=== PATIENT | female | born 1995 | race Caucasian/White ===

== ENCOUNTER 2020-10-12 17:09 | Emergency (ER) | payer OTHER ==
--- NOTE | 2020-10-12 20:01 | XR ---
EXAMINATION TYPE: XR chest 2V DATE OF EXAM: 10/12/2020 COMPARISON: NONE HISTORY: Short of breath. Chest heaviness TECHNIQUE: 2 views FINDINGS: Heart and mediastinum are normal. There is no pleural effusion. Costophrenic angles are mauri ar. There are no hilar masses. Lungs are clear of consolidation. IMPRESSION: No active cardiopulmonary disease. Normal heart.
--- NOTE | 2020-10-12 20:27 | ED ---
General Adult HPI - General Source: patient Mode of arrival: ambulatory Limitations: no limitations <Al Manzanares - Last Filed: 10/13/20 00:24> <Eva Hsu - Last Filed: 10/13/20 13:40> - General Chief complaint: ENT Stated complaint: Sore Throat/BRITTON Time Seen by Provider: 10/12/20 19:31 - History of Present Illness Initial comments: 25-year-old female presents emergency Department with chief complaint of cough sore throat and runny nose. Patient reports this feels like her previous case of Covid which was over 6 months ago. Patient reports a productive cough with yellow sputum production over the last 7 days that has not seemed to be resolving. She also reports a sore throat which he suspects is secondary to the repetitive coughing episodes. She denies any associated shortness of breath or chest pain. Patient reports vaping. Denies any fevers or chills, loss of taste or smell. (Al Manzanares) - Related Data Previous Rx's Medication Instructions Recorded Azithromycin [Zithromax Z-pack (6 0 mg PO DIRECTED #1 pack 10/12/20 tabs)] Allergies Allergy/AdvReac Type Severity Reaction Status Date / Time No Known Allergies Allergy Verified 10/12/20 18:08 Review of Systems ROS Other: All systems not noted in ROS Statement are negative. <Al Manaznares - Last Filed: 10/13/20 00:24> ROS Other: All systems not noted in ROS Statement are negative. <Eva Hsu - Last Filed: 10/13/20 13:40> ROS Statement: Those systems with pertinent positive or pertinent negative responses have been documented in the HPI. Past Medical History Past Medical History: Asthma History of Any Multi-Drug Resistant Organisms: None Reported Past Surgical History: No Surgical Hx Reported Past Psychological History: No Psychological Hx Reported Smoking Status: Vaper Past Alcohol Use History: Occasional Past Drug Use History: None Reported <Al Manzanares - Last Filed: 10/13/20 00:24> General Exam Limitations: no limitations General appearance: alert, in no apparent distress Head exam: Present: atraumatic, normocephalic, normal inspection Eye exam: Present: normal appearance Pupils: Present: normal accommodation ENT exam: Present: normal exam, normal oropharynx, mucous membranes moist Neck exam: Present: normal inspection, full ROM. Absent: tenderness Respiratory exam: Present: normal lung sounds bilaterally. Absent: respiratory distress Cardiovascular Exam: Present: regular rate, normal rhythm, normal heart sounds. Absent: systolic murmur Extremities exam: Present: normal inspection, full ROM, normal capillary refill. Absent: tenderness Back exam: Present: normal inspection, full ROM. Absent: tenderness Neurological exam: Present: alert, oriented X3 Psychiatric exam: Present: normal affect, normal mood Skin exam: Present: warm, dry, intact, normal color <Al Manzanares - Last Filed: 10/13/20 00:24> Course Vital Signs 10/12/20 10/12/20 18:03 20:38 Temperature 98.8 F 97.8 F Pulse Rate 78 77 Respiratory 18 20 Rate Blood Pressure 147/100 119/77 O2 Sat by Pulse 98 98 Oximetry Medical Decision Making <Al Manzanares - Last Filed: 10/13/20 00:24> <Eva Hsu - Last Filed: 10/13/20 13:40> - Medical Decision Making 25-year-old female presents to the emergency department with a chief complaint of cough sore throat and rhinorrhea. Physical examination, patient is well- appearing. Lungs are clear to auscultation. She is negative for Covid. X-rays unremarkable. Advised to stop smoking. She will be started on azithromycin considering the symptoms of benign one for about one week. Return parameters were thoroughly discussed with patient is understanding and agreeable. (Al Manzanares) I was available for consultation in the emergency department. The history and physical exam were done by the midlevel provider. I was consulted for this patients care. I reviewed the case with the midlevel provider and based on their presentation of the patient, I agree with the assessment, medical decision making and plan of care as documented. Chart was dictated using [employer] dictation software. Attempts were made to correct any dictation errors however some typographical errors may persist. Patient was seen during a national state of emergency due to the Covid-19 pandemic. (Eva Hsu) - Lab Data Lab Results 10/12/20 Range/Units 19:35 Coronavirus (PCR) Not Detected (Not Detectd) Disposition Is patient prescribed a controlled substance at d/c from ED?: No Time of Disposition: 20:27 <Al Manzanares - Last Filed: 10/13/20 00:24> <Eva Hsu - Last Filed: 10/13/20 13:40> Clinical Impression: Viral respiratory infection Disposition: HOME SELF-CARE Condition: Stable Instructions (If sedation given, give patient instructions): Viral Syndrome (ED) Additional Instructions: Follow-up with her primary care physician. Return to emergency department if symptoms worsen. Prescriptions: Azithromycin [Zithromax Z-pack (6 tabs)] 0 mg PO DIRECTED #1 pack Referrals: None,Stated [Primary Care Provider] - 1-2 days
[2020-10-12 20:39] VITALS: BP 119/77; PULSE 77; RESP 20; TEMP 97.8
== END 2020-10-12 20:38 | disposition home or self-care (01) ==
LOC: EC 17:09
DX: J06.9 Acute upper respiratory infection, unspecified (principal); J45.909 Unspecified asthma, uncomplicated; F17.290 Nicotine dependence, other tobacco product, uncomplicated; Z20.822 Contact with and (suspected) exposure to COVID-19
CPT/HCPCS: 71046; 87635; 99283

== ENCOUNTER 2024-02-08 06:30 | Emergency (ER) | payer OTHER ==
--- NOTE | 2024-02-08 06:56 | ED ---
ENT HPI - General Chief complaint: ENT Stated complaint: R Ear Infection Time Seen by Provider: 02/08/24 06:55 Source: patient, RN notes reviewed Mode of arrival: ambulatory - History of Present Illness Initial comments: Patient is a 28-year-old female presented to the ER for evaluation of right ear discomfort. Patient states for the past 2 weeks she has had pain/pressure to h er right ear. Patient was seen at [facility] urgent care approximately 1 week ago and diagnosed with otitis media. Patient was started on cefdinir and prednisone. She presents today for worsening of pain stating she was unable to sleep and lay on her right side due to this pressure. She also reports "popping" sensation to her left ear and is concerned infection is worsening. She has been taking [id number] ibuprofen and Tylenol for pain control with minor relief. She denies any fevers, cough, congestion, chest pain, shortness of breath, abdominal pain or other complaints. - Related Data Previous Rx's Medication Instructions Recorded Azithromycin [Zithromax Z-pack (6 0 mg PO DIRECTED #1 pack 10/12/20 tabs)] Amoxic-Pot Clav 875-125Mg 1 tab PO Q12HR 7 Days #14 tab 02/08/24 [Augmentin 875-125] Oxymetazoline 0.05% Nasl [place] 2 spray EA NOSTRIL BID 3 Days #15 02/08/24 [Afrin 0.05% Nasal [place]] ml Allergies Allergy/AdvReac Type Severity Reaction Status Date / Time No Known Allergies Allergy Verified 10/12/20 18:08 Review of Systems ROS Statement: Those systems with pertinent positive or pertinent negative responses have been documented in the HPI. ROS Other: All systems not noted in ROS Statement are negative. Past Medical History Past Medical History: Asthma History of Any Multi-Drug Resistant Organisms: None Reported Past Surgical History: No Surgical Hx Reported Past Psychological History: No Psychological Hx Reported Smoking Status: Vaper Past Alcohol Use History: Occasional Past Drug Use History: None Reported General Exam General appearance: alert, in no apparent distress Eye exam: Present: normal appearance, PERRL, EOMI. Absent: scleral icterus, conjunctival injection, periorbital swelling ENT exam: Present: normal oropharynx, mucous membranes moist, other (Right tympanic membrane is erythematous with purulent drainage present behind membrane. Membrane is not bulging. No mastoid tenderness bilaterally. Left tympanic membrane unremarkable.) Neck exam: Present: normal inspection. Absent: tenderness, meningismus, lymphadenopathy Respiratory exam: Present: normal lung sounds bilaterally. Absent: respiratory distress, wheezes, rales, rhonchi, stridor Cardiovascular Exam: Present: regular rate, normal rhythm, normal heart sounds. Absent: systolic murmur, diastolic murmur, rubs, gallop, clicks Neurological exam: Present: alert, oriented X3, CN II-XII intact Skin exam: Present: warm, dry, intact, normal color. Absent: rash Course Vital Signs 02/08/24 06:35 Temperature 97.5 F L Pulse Rate 103 H Respiratory 18 Rate Blood Pressure 165/84 O2 Sat by Pulse 98 Oximetry Medical Decision Making - Medical Decision Making Was pt. sent in by a medical professional or institution (Dr. PA, [employer] CONSULTANT, urgent care, hospital, or group home...) When possible be specific @ -No Did you speak to anyone other than the patient for history (EMS, parent, family, police, friend...)? What history was obtained from this source @ -No Did you review nursing and triage notes (agree or disagree)? Why? @ -I reviewed and agree with nursing and triage notes Were old charts reviewed (outside hosp., previous admission, EMS record, old EKG, old radiological studies, urgent care reports/EKG's, group home records)? Report findings @ -No old charts were reviewed Differential Diagnosis (chest pain, altered mental status, abdominal pain women, abdominal pain men, vaginal bleeding, weakness, fever, dyspnea, syncope, headache, dizziness, GI bleed, back pain, seizure, CVA, palpatations, mental health, musculoskeletal)? @ -Otitis media, mastoiditis, otitis externa, viral illness... This list is not meant to be all-inclusive EKG interpreted by me (3pts min.). @ -None done X-rays interpreted by me (1pt min.). @ -None done CT interpreted by me (1pt min.). @ -None done U/S interpreted by me (1pt. min.). @ -None done What testing was considered but not performed or refused? (CT, X-rays, U/S, labs)? Why? @ -None What meds were considered but not given or refused? Why? @ -None Did you discuss the management of the patient with other professionals (professionals i.e. DrEileen, PA, [employer] CONSULTANT, lab, RT, psych nurse, social science professor, food trades assistants, teacher, port patrol officer, behavioral health case manager)? Give summary @ -No Was smoking cessation discussed for >3mins.? @ -No Was critical care preformed (if so, how long)? @ -No Were there social determinants of health that impacted care today? How? (Homelessness, low income, unemployed, alcoholism, drug addiction, transportation, low edu. Level, literacy, decrease access to med. care, [place] [facility], rehab)? @ -No Was there de-escalation of care discussed even if they declined (Discuss DNR or withdrawal of care, Hospice)? DNR status @ -No What co-morbidities impacted this encounter? (DM, HTN, Smoking, COPD, CAD, Cancer, CVA, ARF, Chemo, Hep., AIDS, mental health diagnosis, sleep apnea, morbid obesity)? @ -None Was patient admitted / discharged? Hospital course, mention meds given and route, prescriptions, significant lab abnormalities, going to OR and other pertinent info. @ -Discharge. 28-year-old female presented the ER for evaluation of right ear discomfort. History and physical exam completed. Vitals stable. Exam remarkable for an erythematous right tympanic membrane. Membrane is not bulging with purulent drainage present behind membrane. No mastoid tenderness bilaterally. Left unremarkable. Patient will be switched to Augmentin and prescribed Afrin for symptom control. I discussed with patient to stop Afrin use after 3 days. Patient is stable for discharge and outpatient follow-up. Strict return parameters discussed. Patient discharged in stable condition with follow-up to PCP. Patient verbally expressed understanding and agreement with care plan. Case discussed with ED attending, Dr. Puentes. Undiagnosed new problem with uncertain prognosis? @ -No Drug Therapy requiring intensive monitoring for toxicity (Heparin, Nitro, Insulin, Cardizem)? @ -No Were any procedures done? @ -No Diagnosis/symptom? @ -Otitis media Acute, or Chronic, or Acute on Chronic? @ -Acute Uncomplicated (without systemic symptoms) or Complicated (systemic symptoms)? @ -Uncomplicated Side effects of treatment? @ -No Exacerbation, Progression, or Severe Exacerbation? @ -No Poses a threat to life or bodily function? How? (Chest pain, [place], [place], pneumonia, PE, COPD, DKA, ARF, appy, cholecystitis, CVA, Diverticulitis, Homicidal, Suicidal, threat to staff... and all critical care pts) @ -No Disposition Clinical Impression: Otitis media Disposition: HOME SELF-CARE Condition: Stable Instructions (If sedation given, give patient instructions): Ear Infection (ED) Additional Instructions: Do not use Afrin nasal spray for longer than 3 days. Follow-up with PCP. Return to the ER for any new or worsening symptoms. Prescriptions: Oxymetazoline 0.05% Nasl [place] [Afrin 0.05% Nasal [place]] 2 spray EA NOSTRIL BID 3 Days #15 ml Amoxic-Pot Clav 875-125Mg [Augmentin 875-125] 1 tab PO Q12HR 7 Days #14 tab Is patient prescribed a controlled substance at d/c from ED?: No Referrals: Manolo Plata MD [Primary Care Provider] - 1-2 days Time of Disposition: 06:56
[2024-02-08 07:30] VITALS: BP 154/72; PULSE 88; RESP 16; TEMP 98
== END 2024-02-08 07:21 | disposition home or self-care (01) ==
LOC: EC 06:30
DX: H66.91 Otitis media, unspecified, right ear (principal); F17.290 Nicotine dependence, other tobacco product, uncomplicated
CPT/HCPCS: 99283

== ENCOUNTER 2024-04-26 23:23 | Observation (INO) | payer OTHER ==
[2024-04-26 23:34] VITALS: RESP 18
--- NOTE | 2024-04-27 00:16 | ED ---
Extremity Problem HPI - General Chief complaint: Burn/Smoke Inhalation Stated complaint: burn on leg infected Time Seen by Provider: 04/26/24 23:37 Source: patient, RN notes reviewed Mode of arrival: ambulatory Limitations: no limitations - History of Present Illness Initial comments: This is a 28-year-old female who presents to the emergency department for concerns of a burn to her left thigh. States that she burned her left thigh on a curling iron 1 week ago. States that she then started to develop redness around the burn and her whole leg started to become swollen. States that this is also severely painful. She went to urgent care a couple of days ago and was started on Keflex. She has been on this for over 2 days now but is not having any improvement. States that she is barely able to walk due to the pain. She has also noticed drainage from the burn. Also reports weakness and nausea. States that she also started to have fevers yesterday. - Related Data Home Medications Medication Instructions Recorded Confirmed Escitalopram [Lexapro] 10 mg PO DAILY 03/24/24 03/24/24 metFORMIN HCL 500 mg PO DAILY 03/24/24 03/24/24 Previous Rx's Medication Instructions Recorded Atorvastatin [Lipitor] 40 mg PO DAILY 30 Days #30 tab 03/26/24 Fenofibrate [Lofibra] 160 mg PO DAILY 30 Days #30 tab 03/26/24 Ondansetron Odt [Zofran Odt] 4 mg PO Q8HR PRN 30 Days #30 tab 03/26/24 amLODIPine [Norvasc] 5 mg PO DAILY@1200 30 Days #30 tab 03/26/24 Allergies Allergy/AdvReac Type Severity Reaction Status Date / Time No Known Allergies Allergy Verified 04/26/24 23:33 Review of Systems ROS Statement: Those systems with pertinent positive or pertinent negative responses have been documented in the HPI. ROS Other: All systems not noted in ROS Statement are negative. Past Medical History Past Medical History: Asthma, Hypertension History of Any Multi-Drug Resistant Organisms: None Reported Past Surgical History: No Surgical Hx Reported Past Psychological History: No Psychological Hx Reported Smoking Status: Vaper Past Alcohol Use History: Occasional Past Drug Use History: None Reported General Exam Limitations: no limitations General appearance: alert, in no apparent distress Head exam: Present: atraumatic, normocephalic, normal inspection Respiratory exam: Present: normal lung sounds bilaterally. Absent: respiratory distress, wheezes, rales, rhonchi, stridor Cardiovascular Exam: Present: regular rate, normal rhythm Extremities exam: Present: other (Burn to the anterior aspect of the left thigh encompassing 1 to 2% total BSA. Surrounding erythema and swelling of the left lower extremity. 2+ DP and PT pulses) Neurological exam: Present: alert, oriented X3, CN II-XII intact Psychiatric exam: Present: normal affect, normal mood Course Vital Signs 04/26/24 23:31 Temperature 98.2 F Pulse Rate 80 Respiratory 18 Rate Blood Pressure 143/91 O2 Sat by Pulse 96 Oximetry Medical Decision Making - Medical Decision Making This is a 28 year old female who presents to the emergency department for left leg pain. Was pt. sent in by a medical professional or institution? @ -No Did you speak to anyone other than the patient for history? @ -No Did you review nursing and triage notes? @ -Yes, and I agree, it is accurate with regards to the patient's symptoms. Were old charts reviewed? @ -No Differential Diagnosis? @ -Leg fracture, leg sprain, DVT, PVD, arterial insufficiency, iliac artery aneurysm, cellulitis, compartment syndrome, tendinopathy, nerve entrapment, piriformis syndrome, osteoarthritis, rhabdomyolysis, myositis, cramping from an electrolyte imbalance, this is not meant to be an all inclusive list. EKG interpreted by me (3pts min.)? @ -Not obtained X-rays interpreted by me (1pt min.)? @ -Not obtained CT interpreted by me (1pt min.)? @ -Not obtained U/S interpreted by me (1pt. min.)? @ -Not obtained What testing was considered but not performed? (CT, X-rays, U/S, labs)? Why? @ -None What meds were considered but not given? Why? @ -None Did you discuss the management of the patient with other professionals? @ -No Did you reconcile home meds? @ -No Was smoking cessation discussed for >3mins.? @ -No Was critical care preformed (if so, how long)? @ -No Were there social determinants of health that impacted care today? How? (Homelessness, low income, unemployed, alcoholism, drug addiction, tr ansportation, low edu. Level, literacy, decrease access to med. care, nursing home, rehab)? @ -No Was there de-escalation of care discussed even if they declined? (Discuss DNR or withdrawal of care, Hospice)? @ -No What co-morbidities impacted this encounter? (DM, HTN, Smoking, COPD, CAD, Cancer, CVA, Hep., AIDS, mental health diagnosis, sleep apnea, morbid obesity)? @ -None Was patient admitted / discharged? @ -Discharged. Lab work entirely unremarkable including no leukocytosis or elevated inflammatory markers. She had a wound to the anterior aspect of her left thigh consistent with patient's noted burn. She did have some generalized swelling and erythema around it as well. She is on Keflex, but had only been on it for a couple of days at this point. We had discussed adding an additional antibiotic for more coverage and discharge with pain control. However, patient states that her pain is too severe and she is unable to ambulate and does not believe she can go home. Her pain was also uncontrolled despite IV Dilaudid. She was subsequently admitted to medicine for intractable pain and a burn with surrounding cellulitis. Blood and wound cultures obtained. She was started on vancomycin and cefepime. Consult placed for infectious disease and wound care. Case discussed with ED attending Dr. Hunter. Undiagnosed new problem with uncertain prognosis? @ -None Drug Therapy requiring intensive monitoring for toxicity (Heparin, Nitro, Insulin, Cardizem)? @ -None Were any procedures done? @ -None Diagnosis/symptom? @ -Left leg burn, cellulitis, intractable pain Acute, or Chronic, or Acute on Chronic? @ -Acute Uncomplicated (without systemic symptoms) or Complicated (systemic symptoms)? @ -Complicated Side effects of treatment? @ -None Exacerbation, Progression, or Severe Exacerbation] @ -Not applicable Poses a threat to life or bodily function? @ -Yes, the pain is limiting her ability to function. - Lab Data Result diagrams: 04/27/24 00:13 04/27/24 00:13 Lab Results 04/27/24 04/27/24 04/27/24 Range/Units 00:13 00:13 00:13 WBC 10.0 (3.8-10.6) k/uL RBC 4.42 (3.80-5.40) m/uL Hgb 13.3 (11.4-16.0) gm/dL Hct 41.2 (34.0-46.0) % MCV 93.3 (80.0-100.0) fL MCH 30.1 (25.0-35.0) pg MCHC 32.2 (31.0-37.0) g/dL RDW 14.1 (11.5-15.5) % Plt Count 305 (150-450) k/uL MPV 7.7 Neutrophils % 55 % Lymphocytes % 37 % Monocytes % 4 % Eosinophils % 1 % Basophils % 0 % Neutrophils # 5.5 (1.3-7.7) k/uL Lymphocytes # 3.6 (1.0-4.8) k/uL Monocytes # 0.4 (0-1.0) k/uL Eosinophils # 0.1 (0-0.7) k/uL Basophils # 0.0 (0-0.2) k/uL Sodium 141 (137-145) mmol/L Potassium 3.7 (3.5-5.1) mmol/L Chloride 104 (98-107) mmol/L Carbon Dioxide 24 (22-30) mmol/L Anion Gap 13 mmol/L BUN 7 (7-17) mg/dL Creatinine 0.65 (0.52-1.04) mg/dL Est GFR (CKD-EPI)AfAm >90 (>60 ml/min/1.73 sqM) Est GFR (CKD-EPI)NonAf >90 (>60 ml/min/1.73 sqM) Glucose 104 H (74-99) mg/dL Plasma Lactic Acid [place] 1.6 (0.7-2.0) mmol/L Calcium 8.9 (8.4-10.2) mg/dL Total Bilirubin 0.3 (0.2-1.3) mg/dL AST 44 H (14-36) U/L ALT 29 (4-34) U/L Alkaline Phosphatase 76 (38-126) U/L C-Reactive Protein <0.5 (<1.0) mg/dL Total Protein 7.6 (6.3-8.2) g/dL Albumin 4.4 (3.5-5.0) g/dL Disposition Clinical Impression: Burn of left leg, Cellulitis of left leg, Intractable pain Disposition: ADMITTED IP TO THIS HOSP
[2024-04-27] MEDS: SODIUM CHLORIDE 0.9% 1,000 ML IV ONE (00:20)
[2024-04-27] MEDS: KETOROLAC 15 MG/ML 1 ML VIAL IVP STA (00:21)
[2024-04-27] MEDS: ONDANSETRON 4 MG/2 ML VIAL IVP STA (00:21)
[2024-04-27] MEDS: HYDROmorphone 1 MG/ML 1 ML SYRINGE IVP STA ×2 (00:22→02:02)
[2024-04-27 00:36] LABS: Basophils % (A) 0 %; Eosinophils # (A) 0.1 k/uL (0-0.7); Eosinophils % (A) 1 %; HCT 41.2 % (34.0-46.0); HGB 13.3 gm/dL (11.4-16.0); Lymphocytes # (A) 3.6 k/uL (1.0-4.8); Lymphocytes % (A) 37 %; MCH 30.1 pg (25.0-35.0); MCHC 32.2 g/dL (31.0-37.0); MCV 93.3 fL (80.0-100.0); Mean Platelet Volume 7.7; Monocytes # (A) 0.4 k/uL (0-1.0); Monocytes % (A) 4 %; Neutrophils # (A) 5.5 k/uL (1.3-7.7); Neutrophils % (A) 55 %; Platelet Count 305 k/uL (150-450); RBC 4.42 m/uL (3.80-5.40); RDW 14.1 % (11.5-15.5)
[2024-04-27 00:53] LABS: ALT 29 U/L (4-34); AST 44 U/L (14-36); African American GFR (CKD) >90 (>60 ml/min/1.73 sqM); Albumin 4.4 g/dL (3.5-5.0); Alkaline Phosphatase 76 U/L (38-126); Anion Gap 13 mmol/L; Blood Urea Nitrogen 7 mg/dL (7-17); Calcium 8.9 mg/dL (8.4-10.2); Carbon Dioxide 24 mmol/L (22-30); Chloride 104 mmol/L (98-107); Glucose 104 mg/dL (74-99); Non-African American GFR(CKD) >90 (>60 ml/min/1.73 sqM); Potassium 3.7 mmol/L (3.5-5.1); Sodium 141 mmol/L (137-145); Total Bilirubin 0.3 mg/dL (0.2-1.3); Total Protein 7.6 g/dL (6.3-8.2)
[2024-04-27 01:01] LABS: C Reactive Protein <0.5 mg/dL (<1.0)
[2024-04-27] MEDS ORDERED: VANCOMYCIN IV PER PHARMACY 1 EACH MISC MISCELLANE PRN (01:43)
[2024-04-27] MEDS: CEFEPIME 1 GM in SODIUM CHLORIDE 0.9% 50 ML IVPB SCH (02:11)
[2024-04-27] MEDS ORDERED: NALOXONE 0.4 MG/ML 1 ML VIAL IV PRN (02:17)
[2024-04-27] MEDS ORDERED: ACETAMINOPHEN TAB 325 MG TAB PO PRN (02:17)
[2024-04-27] MEDS: SODIUM CHLORIDE 0.9% 1,000 ML IV SCH (02:30)
[2024-04-27] MEDS: ONDANSETRON 4 MG/2 ML VIAL IVP PRN (02:30)
[2024-04-27] MEDS: HYDROmorphone 1 MG/ML 1 ML SYRINGE IVP PRN (03:27)
[2024-04-27] MEDS: HYDROmorphone 0.5 MG/0.5 ML SYRINGE IVP PRN (03:29)
[2024-04-27] MEDS: VANCOMYCIN 1,500 MG in SODIUM CHLORIDE 0.9% 500 ML 500 ML IVPB ONE (03:33)
[2024-04-27] MEDS: IBUPROFEN 400 MG TAB PO PRN (05:46)
[2024-04-27] MEDS: PANTOPRAZOLE 40 MG/10 ML VIAL IV SCH (09:15)
[2024-04-27] MEDS: KETOROLAC 15 MG/ML 1 ML VIAL IVP PRN (09:28)
[2024-04-27] MEDS: VANCOMYCIN 1,500 MG in SODIUM CHLORIDE 0.9% 500 ML 500 ML IVPB SCH (11:03)
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
[2024-04-27 12:49] LABS: Erythrocyte Sedimentation Rate 14 mm/Hr (0-20)
[2024-04-27] MEDS: methylPREDNISolone SOD SUCCI 40 MG/ML 1 ML VIAL IV ONE (14:22)
[2024-04-27 14:31] VITALS: BP 129/94; PULSE 74; TEMP 97.7
[2024-04-28] MEDS ORDERED: VANCOMYCIN TROUGH DUE 1 EACH MISC MISCELLANE ONE (09:00)
== END 2024-04-27 14:33 | disposition home or self-care (01) ==
LOC: EC 23:23 → 6NMEDSUR 04-27 02:59
PROVIDERS: ADMIT Hospitalist; ATTEND Hospitalist
DX: T24.312A Burn of third degree of left thigh, initial encounter (principal); T31.0 Burns involving less than 10% of body surface; X15.8XXA Contact with other hot household appliances, initial encounter; I10 Essential (primary) hypertension; J45.909 Unspecified asthma, uncomplicated; E78.5 Hyperlipidemia, unspecified; F32.A Depression, unspecified; F17.290 Nicotine dependence, other tobacco product, uncomplicated; Z79.51 Long term (current) use of inhaled steroids; Z79.84 Long term (current) use of oral hypoglycemic drugs; Z79.899 Other long term (current) drug therapy
CPT/HCPCS: 99285; 36415; 80053; 85652; 83605; 85025; 86140; 87040; 87070; 87205; 87075; G0378; J3370; J2405; J0692; J1171 ×2; J1885; J2919; J2470

== ENCOUNTER 2024-04-30 15:51 | Emergency (ER) | payer OTHER ==
[2024-04-30 15:57] VITALS: RESP 20
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
[2024-04-30] MEDS: HYDROcodone/APAP 5-325MG 1 EACH TAB PO STA (16:38)
[2024-04-30] MEDS: traMADol 50 MG STARTER PACK 3 TAB BTL PO STA (16:39)
[2024-04-30 16:51] VITALS: BP 134/89; PULSE 84; TEMP 97.9
== END 2024-04-30 16:56 | disposition home or self-care (01) ==
LOC: EC 15:51
DX: T24.012A Burn of unspecified degree of left thigh, initial encounter (principal); G89.29 Other chronic pain; F17.290 Nicotine dependence, other tobacco product, uncomplicated; X58.XXXA Exposure to other specified factors, initial encounter
CPT/HCPCS: 99283

== ENCOUNTER → 2024-05-30 | Outpatient (CLI) | payer OTHER ==
[2024-05-30 13:57] VITALS: BP 142/88; PULSE 88; RESP 16; TEMP 98.6
--- NOTE | 2024-05-30 14:36 | P.SLEEP ---
History of Present Illness DATE: 05/30/2024 CONSULTATION/NEW PATIENT EVALUATION HISTORY OF PRESENT ILLNESS/SLEEP-WAKE EVALUATION: 36-year-old lady had been e valuated in the sleep center for possible obstructive sleep apnea hypopnea syndrome and significant excessive daytime sleepiness. 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 From 8 AM to 10 PM or from midnight until 8 AM and on days off from 4 AM until 10 AM.. FALLING ASLEEP: Patient has difficulties with falling asleep, has TV set in be droom. DURING SLEEP: Patient sleeps in different positions including back, side, stomach. Positive history of loud snoring, witnessed episodes of stop breathing during the sleep, dry mouth, panic attacks, palpitations, heartburn, sweating, sleep talking, nocturia. No history of hypnogogical hallucinations, sleep paralysis, or cataplexy. DURING THE DAY/WAKE STATE: In the morning patient wake up tired, has problems with memory, concentration, sleepiness.. Viola sleepiness scale is increased to 12. Patient takes about 1 nap during the daytime. PAST MEDICAL HISTORY: Hypertension, depression, hyperlipidemia, iron deficiency anemia, acid reflux, asthma. PAST SURGICAL HISTORY: None. MEDICATIONS: Please see below. SOCIAL HISTORY: Please see below. FAMILY HISTORY: Please see below. REVIEW OF SYSTEMS: Loud snoring, multiple awakenings from sleep up to 15 times, sleepiness. No fevers. No double vision. No recent chest pain. No shortness of breath. No abdominal pain. No bleeding episodes. No blood in urine. No seizure episodes. PHYSICAL EXAMINATION: GENERAL: A pleasant patient without any distress. VITAL SIGNS: Please see below weight is 231 pounds, BMI 37.8. HEENT: PERRLA, EOMI. Evaluation of oropharynx showed tongue protrudes midline, low position of soft palate Mallampati 3. NECK: Supple. No JVD. Thyroid is not palpable. 16 inches in circumference. LUNGS: Clear to percussion and to auscultation. Good air exchange. No wheezing or rhonchi. HEART: S1, S2 regular. No murmurs, gallops or rubs. ABDOMEN: Soft and nontender. Bowel sounds are present. No organomegaly appreciated. EXTREMITIES: No clubbing or cyanosis. ATHLETIC TEAM PHYSICIAN: Awake, alert, and oriented x3. Cranial nerves 2 to 7 intact. There is no fasciculation or atrophy noted. No focal deficits observed. ASSESSMENT: 1. Loud snoring, witnessed episodes of stop breathing in the sleep, low position of soft palate Mallampati 3, wide neck 16 inches in circumference, sleepiness. Obstructive sleep apnea hypopnea syndrome. 2. Sleepiness with Viola Sleepiness Scale increased to 12. Differential diagnosis would include hypersomnia. 3. 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 4. Hypertension. 5 asthma. 6 . Depression. 7. Hyperlipidemia. 8. History of iron deficiency anemia. 9 . Acid reflux. 10. Obesity, BMI 37.8. PLAN: 1. Polysomnography for evaluation of patient's breathing during sleep. Multiple sleep latency test, if sleep study will be negative for obstructive sleep apnea hypopnea syndrome. 2. Following plan after reading sleep study 3. Preferable position during sleep on the side. 4. No driving if patient feels any sleepiness. Patient is aware of civil and criminal liability for unsafe driving. 5. Sleep hygiene with regular sleep time for at least 7.5-8 hours. 6. Watching and losing weight. Thank you very much for referring this patient for consultation. Sincerely, ePpe Raygoza MD, PhD, FAASM. Diplomat of [place] [employer], Sleep Medicine Board by [place] [employer] [place] [employer] Information Developer of [facility] Harper cc: Abena Gonzalez MD Past Medical History Past Medical History: Asthma, GERD/Reflux, Hyperlipidemia, Hypertension, Pneumonia Additional Past Medical History / Comment(s): bronchitis, snoring, lung problems, headaches, insomnia, anemia, mental illness History of Any Multi-Drug Resistant Organisms: None Reported Past Surgical History: No Surgical Hx Reported Past Anesthesia/Blood Transfusion Reactions: No Reported Reaction Past Psychological History: No Psychological Hx Reported Smoking Status: Vaper Past Alcohol Use History: Occasional Past Drug Use History: None Reported - Past Family History Mother Family Medical History: Coronary Artery Disease (CAD), Hyperlipidemia, Hypertension, Liver Disease, Rheumatoid Arthritis (RA) Additional Family Medical History / Comment(s): fibromyalgia, snoring, mental illness Father Family Medical History: Cancer, Diabetes Mellitus, GERD/Reflux Medications and Allergies Home Medications Medication Instructions Recorded Confirmed Type Escitalopram [Lexapro] 10 mg PO DAILY 03/24/24 05/30/24 History metFORMIN HCL 500 mg PO DAILY 03/24/24 04/27/24 History Atorvastatin [Lipitor] 40 mg PO DAILY 30 Days #30 tab 03/26/24 04/27/24 Rx Fenofibrate [Lofibra] 160 mg PO DAILY 30 Days #30 tab 03/26/24 04/27/24 Rx Ondansetron Odt [Zofran Odt] 4 mg PO Q8HR PRN 30 Days #30 tab 03/26/24 05/30/24 Rx amLODIPine [Norvasc] 5 mg PO DAILY@1200 30 Days #30 tab 03/26/24 05/30/24 Rx Acetaminophen Tab [Tylenol Tab] 500 mg PO Q6HR PRN 04/27/24 04/27/24 History Cetirizine HCl [Zyrtec] 10 mg PO DAILY 04/27/24 05/30/24 History Famotidine [Pepcid] 20 mg PO BID #20 tablet 04/27/24 Rx Fluticasone Nasal [place] [Flonase 1 spray EA NOSTRIL DAILY PRN 04/27/24 05/30/24 History Nasal [place]] HYDROcodone/APAP 5-325MG [[place] 1 tab PO Q6HR PRN #15 tab 04/27/24 Rx 5-325] Naproxen [Naprosyn] 250 mg PO QID PRN #30 tab 04/27/24 05/30/24 Rx Silver Sulfadiazine [SSD 1% Cream] 1 applic TOPICAL BID 04/27/24 05/30/24 History Sulfamethox-Tmp 800-160Mg [Bactrim 1 tab PO Q12HR #14 tab 04/27/24 Rx DS 800-160 mg] HYDROcodone/APAP 5-325MG [[place] 1 tab PO Q6HR PRN #12 tab 04/30/24 Rx 5-325] Allergies Allergy/AdvReac Type Severity Reaction Status Date / Time No Known Allergies Allergy Verified 04/30/24 15:53 Physical Exam Vitals: Vital Signs Temp Pulse Resp BP Pulse Ox 05/30/24 13:56 98.6 F 88 16 142/88 96 Intake and Output 05/29/24 05/30/24 05/30/24 22:59 06:59 14:59 Other: Weight 104.78 kg Sleep Note - Sleep Data ESS Total: 12 - Sleep Note Sleep Note: Temperature: 98.6 F Pulse Rate: 88 Respiratory Rate: 16 Blood Pressure: 142/88 SpO2: 96 Height: 5 ft 5.5 in Weight: 104.78 kg BMI: Neck Circumference: 16
== END ==
LOC: 3 N SLEEP 13:27
PROVIDERS: ATTEND Internal Medicine
DX: G47.33 Obstructive sleep apnea (adult) (pediatric) (principal); I10 Essential (primary) hypertension; J45.909 Unspecified asthma, uncomplicated; F32.A Depression, unspecified; E78.5 Hyperlipidemia, unspecified; K21.9 Gastro-esophageal reflux disease without esophagitis; E66.9 Obesity, unspecified; Z68.37 Body mass index [BMI] 37.0-37.9, adult; Z86.2 Personal history of diseases of the blood and blood-forming organs and certain disorders involving the immune mechanism
CPT/HCPCS: 99211

== ENCOUNTER 2024-06-15 04:42 | Emergency (ER) | payer OTHER ==
[2024-06-15 04:57] VITALS: TEMP 98.5
--- NOTE | 2024-06-15 05:09 | ED ---
Psych HPI <Isaac Acevedo - Last Filed: 06/15/24 14:03> - General Source: patient, police Mode of arrival: ambulatory - History of Present Illness MD Complaint: suicidal ideation, feels depressed -: hour(s) Associated Psychiatric Symptoms: depression, suicidal ideation History of same: Yes Quality: getting worse Improves With: none Worsens With: none <Nicho Puentes - Last Filed: 06/25/24 03:10> - General Chief Complaint: Psychiatric Symptoms Stated Complaint: mental health Time Seen by Provider: 06/15/24 05:07 - History of Present Illness Initial Comments: This patient is 28-year-old woman with history of mood disorder and previous suicidal ideation who arrives here to have psychiatric evaluation for same. The patient states that she had been more depressed than usual and reached out to the suicide prevention hotline and then first responders were directed to her. She states that she was considering harming herself but she had not taken any steps. (Nicho Puentes) - Related Data Home Medications Medication Instructions Recorded Confirmed Escitalopram [Lexapro] 10 mg PO DAILY 03/24/24 05/30/24 metFORMIN HCL 500 mg PO DAILY 03/24/24 04/27/24 Acetaminophen Tab [Tylenol Tab] 500 mg PO Q6HR PRN 04/27/24 04/27/24 Cetirizine HCl [Zyrtec] 10 mg PO DAILY 04/27/24 05/30/24 Fluticasone Nasal [place] [Flonase 1 spray EA NOSTRIL DAILY PRN 04/27/24 05/30/24 Nasal [place]] Silver Sulfadiazine [SSD 1% Cream] 1 applic TOPICAL BID 04/27/24 05/30/24 Previous Rx's Medication Instructions Recorded Atorvastatin [Lipitor] 40 mg PO DAILY 30 Days #30 tab 03/26/24 Fenofibrate [Lofibra] 160 mg PO DAILY 30 Days #30 tab 03/26/24 Ondansetron Odt [Zofran Odt] 4 mg PO Q8HR PRN 30 Days #30 tab 03/26/24 amLODIPine [Norvasc] 5 mg PO DAILY@1200 30 Days #30 tab 03/26/24 Famotidine [Pepcid] 20 mg PO BID #20 tablet 04/27/24 HYDROcodone/APAP 5-325MG [[place] 1 tab PO Q6HR PRN #15 tab 04/27/24 5-325] Naproxen [Naprosyn] 250 mg PO QID PRN #30 tab 04/27/24 Sulfamethox-Tmp 800-160Mg [Bactrim 1 tab PO Q12HR #14 tab 04/27/24 DS 800-160 mg] HYDROcodone/APAP 5-325MG [[place] 1 tab PO Q6HR PRN #12 tab 04/30/24 5-325] Allergies Allergy/AdvReac Type Severity Reaction Status Date / Time No Known Allergies Allergy Verified 06/15/24 04:57 Review of Systems ROS Other: All systems not noted in ROS Statement are negative. <Isaac Acevedo - Last Filed: 06/15/24 14:03> ROS Other: All systems not noted in ROS Statement are negative. Constitutional: Denies: fever Respiratory: Denies: cough, dyspnea Cardiovascular: Denies: chest pain, palpitations, edema Gastrointestinal: Denies: abdominal pain, nausea, vomiting Musculoskeletal: Denies: back pain Skin: Denies: rash Neurological: Denies: headache, weakness Psychiatric: Reports: depression, suicidal thoughts. Denies: auditory hallucinations, visual hallucinations, homicidal thoughts <Nicho Puentes - Last Filed: 06/25/24 03:10> ROS Statement: Those systems with pertinent positive or pertinent negative responses have been documented in the HPI. Past Medical History Past Medical History: Asthma, GERD/Reflux, Hyperlipidemia, Hypertension, Pneumonia Additional Past Medical History / Comment(s): bronchitis, snoring, lung problems, headaches, insomnia, anemia, mental illness History of Any Multi-Drug Resistant Organisms: None Reported Past Surgical History: No Surgical Hx Reported Past Anesthesia/Blood Transfusion Reactions: No Reported Reaction Past Psychological History: Depression Smoking Status: Vaper Past Alcohol Use History: Occasional Past Drug Use History: None Reported - Past Family History Mother Family Medical History: Coronary Artery Disease (CAD), Hyperlipidemia, Hypertension, Liver Disease, Rheumatoid Arthritis (RA) Additional Family Medical History / Comment(s): fibromyalgia, snoring, mental illness Father Family Medical History: Cancer, Diabetes Mellitus, GERD/Reflux <Nicho Puentes - Last Filed: 06/25/24 03:10> General Exam Limitations: no limitations General appearance: alert, in no apparent distress Head exam: Present: atraumatic, normocephalic Eye exam: Present: normal appearance. Absent: scleral icterus, conjunctival injection ENT exam: Present: normal oropharynx Neck exam: Present: normal inspection Respiratory exam: Present: normal lung sounds bilaterally. Absent: respiratory distress, wheezes, rales, rhonchi, stridor, accessory muscle use Cardiovascular Exam: Present: regular rate, normal rhythm, normal heart sounds. Absent: systolic murmur, diastolic murmur, rubs, gallop GI/Abdominal exam: Present: soft. Absent: distended, tenderness, guarding, rebound, rigid Extremities exam: Present: normal inspection, normal capillary refill. Absent: pedal edema Neurological exam: Present: alert Psychiatric exam: Present: depressed, anxious, suicidal ideation. Absent: a gitated, flat affect, manic, homicidal ideation Skin exam: Present: warm, dry, intact, normal color. Absent: rash <Nicho Puentes - Last Filed: 06/25/24 03:10> Course Vital Signs 06/15/24 06/15/24 06/15/24 04:44 10:34 14:12 Temperature 98.5 F Pulse Rate 88 67 77 Respiratory 16 18 16 Rate Blood Pressure 155/96 118/70 149/97 O2 Sat by Pulse 98 100 99 Oximetry Medical Decision Making <Isaac Acevedo - Last Filed: 06/15/24 14:03> <Nicho Puentes - Last Filed: 06/25/24 03:10> - Medical Decision Making Was patient admitted / discharged? Hospital course, mention meds given and route, prescriptions, significant lab abnormalities, going to OR and other pertinent info. @ -EPS evaluated the patient and set up a safety plan everybody was in agreement with the safety plan patient will be discharged home. Undiagnosed new problem with uncertain prognosis? @ -No Drug Therapy requiring intensive monitoring for toxicity (Heparin, Nitro, Insulin, Cardizem)? @ -No Were any procedures done? @ -No Diagnosis/symptom? @ -Mood disorder Acute, or Chronic, or Acute on Chronic? @ -Acute on chronic Uncomplicated (without systemic symptoms) or Complicated (systemic symptoms)? @ -Complicated Side effects of treatment? @ -No Exacerbation, Progression, or Severe Exacerbation? @ -No Poses a threat to life or bodily function? How? (Chest pain, [place], [place], pneumonia, PE, COPD, DKA, ARF, appy, cholecystitis, CVA, Diverticulitis, Homicidal, Suicidal, threat to staff... and all critical care pts) @ -No (Isaac Acevedo) Was pt. sent in by a medical professional or institution (, BRANDON, HIGH SCHOOL GUIDANCE COUNSELOR, urgent care, hospital, or [facility]...) When possible be specific @ -[No] Did you speak to anyone other than the patient for history (EMS, parent, family, police, friend...)? What history was obtained from this source @ -[No] Did you review nursing and triage notes (agree or disagree)? Why? @ -[I reviewed and agree with nursing and triage notes] Were old charts reviewed (outside hosp., previous admission, EMS record, old EKG, old radiological studies, urgent care reports/EKG's, [facility] records)? Report findings @ -[No old charts were reviewed] Differential Diagnosis (chest pain, altered mental status, abdominal pain women, abdominal pain men, vaginal bleeding, weakness, fever, dyspnea, syncope, headache, dizziness, GI bleed, back pain, seizure, CVA, palpatations, mental health, musculoskeletal)? @ -[Differential Mental Health Depression, anxiety, bipolar, psychosis, schizophrenia, borderline personality, situational depression, adjustment disorder, behavioral disorder, brain tumor, malingering, substance abuse, encephalopathy, medication reaction, dementia, hypothyroidism, degenerative neurologic disorder, lupus.... This is not meant to be all-inclusive list EKG interpreted by me (3pts min.). @ -[As above] X-rays interpreted by me (1pt min.). @ -[None done] CT interpreted by me (1pt min.). @ -[None done] U/S interpreted by me (1pt. min.). @ -[None done] What testing was considered but not performed or refused? (CT, X-rays, U/S, labs)? Why? @ -[None] What meds were considered but not given or refused? Why? @ -[None] Did you discuss the management of the patient with other professionals (professionals i.e. BRANDON Galloway, HIGH SCHOOL GUIDANCE COUNSELOR, lab, RT, psych nurse, outreach and education social worker, professor of mechanical engineering, teacher, traffic officer, medical case worker)? Give summary @ -[No] Was smoking cessation discussed for >3mins.? @ -[No] Was critical care preformed (if so, how long)? @ -[No] Were there social determinants of health that impacted care today? How? (Homelessness, low income, unemployed, alcoholism, drug addiction, transportation, low edu. Level, literacy, decrease access to med. care, group home, rehab)? @ -[No] Was there de-escalation of care discussed even if they declined (Discuss DNR or withdrawal of care, Hospice)? DNR status @ -[No] What co-morbidities impacted this encounter? (DM, HTN, Smoking, COPD, CAD, Cancer, CVA, ARF, Chemo, Hep., AIDS, mental health diagnosis, sleep apnea, morbid obesity)? @ -[None] Was patient admitted / discharged? Hospital course, mention meds given and route, prescriptions, significant lab abnormalities, going to OR and other pertinent info. @ -[The patient is pending EPS evaluation at the time of shift change and is signed out to the oncoming physician (Nicho Puentes) Disposition Is patient prescribed a controlled substance at d/c from ED?: No Time of Disposition: 14:05 <Isaac Acevedo - Last Filed: 06/15/24 14:03> <Nicho Puentes - Last Filed: 06/25/24 03:10> Clinical Impression: Depression, Mood disorder Disposition: HOME SELF-CARE Instructions (If sedation given, give patient instructions): Mood Disorders (ED), Depression (ED) Referrals: Abena Gonzalez MD [Primary Care Provider] - 1-2 days
[2024-06-15 14:14] VITALS: BP 149/97; PULSE 77; RESP 16
== END 2024-06-15 14:14 | disposition home or self-care (01) ==
LOC: EC 04:42
DX: F32.A Depression, unspecified (principal); F17.290 Nicotine dependence, other tobacco product, uncomplicated
CPT/HCPCS: 82075; 99285

== ENCOUNTER 2024-08-23 22:04 | Emergency (ER) | payer OTHER ==
[2024-08-23] MEDS: FLUORESCEIN STRIPS 1 MG STRIP LEFT EYE ONE (22:22)
[2024-08-23] MEDS: PROPARACAINE 0.5% OPHTH DROPS 15 ML BTL LEFT EYE STA (22:22)
--- NOTE | 2024-08-23 22:37 | ED ---
Eye Problem HPI - General Chief complaint: Eye Problems Stated complaint: Obstruction in left eye Time Seen by Provider: 08/23/24 22:18 Source: patient, RN notes reviewed Mode of arrival: ambulatory Limitations: no limitations - History of Present Illness MD chief complaint: eye pain, foreign body Onset/Timin -: hour(s) Onset Description: sudden Location: left eye Place: street/outdoors Eye Symptoms: redness, pain, foreign body sensation Severity scale (1-10): 7 If Pain, Quality: sharp Consistency: constant Associated Symptoms: none Treatments Prior to Arrival: irrigated eye - Related Data Home Medications Medication Instructions Recorded Confirmed Escitalopram [Lexapro] 10 mg PO DAILY 03/24/24 05/30/24 metFORMIN HCL 500 mg PO DAILY 03/24/24 04/27/24 Acetaminophen Tab [Tylenol Tab] 500 mg PO Q6HR PRN 04/27/24 04/27/24 Cetirizine HCl [Zyrtec] 10 mg PO DAILY 04/27/24 05/30/24 Fluticasone Nasal [place] [Flonase 1 spray EA NOSTRIL DAILY PRN 04/27/24 05/30/24 Nasal [place]] Silver Sulfadiazine [SSD 1% Cream] 1 applic TOPICAL BID 04/27/24 05/30/24 Previous Rx's Medication Instructions Recorded Atorvastatin [Lipitor] 40 mg PO DAILY 30 Days #30 tab 03/26/24 Fenofibrate [Lofibra] 160 mg PO DAILY 30 Days #30 tab 03/26/24 Ondansetron Odt [Zofran Odt] 4 mg PO Q8HR PRN 30 Days #30 tab 03/26/24 amLODIPine [Norvasc] 5 mg PO DAILY@1200 30 Days #30 tab 03/26/24 Famotidine [Pepcid] 20 mg PO BID #20 tablet 04/27/24 HYDROcodone/APAP 5-325MG [[place] 1 tab PO Q6HR PRN #15 tab 04/27/24 5-325] Naproxen [Naprosyn] 250 mg PO QID PRN #30 tab 04/27/24 Sulfamethox-Tmp 800-160Mg [Bactrim 1 tab PO Q12HR #14 tab 04/27/24 DS 800-160 mg] HYDROcodone/APAP 5-325MG [[place] 1 tab PO Q6HR PRN #12 tab 04/30/24 5-325] Polymyxin B-Trimeth Sulf Ophth 1 drops LEFT EYE Q3H 7 Days #10 ml 08/23/24 [Polytrim Opthalmic] Allergies Allergy/AdvReac Type Severity Reaction Status Date / Time No Known Allergies Allergy Verified 08/23/24 22:08 Review of Systems ROS Statement: Those systems with pertinent positive or pertinent negative responses have been documented in the HPI. ROS Other: All systems not noted in ROS Statement are negative. Past Medical History Past Medical History: Asthma, GERD/Reflux, Hyperlipidemia, Hypertension, Pneumo [place] Additional Past Medical History / Comment(s): bronchitis, snoring, lung problems, headaches, insomnia, anemia, mental illness History of Any Multi-Drug Resistant Organisms: None Reported Past Surgical History: No Surgical Hx Reported Past Anesthesia/Blood Transfusion Reactions: No Reported Reaction Past Psychological History: Depression Smoking Status: Vaper Past Alcohol Use History: Occasional Past Drug Use History: None Reported - Past Family History Mother Family Medical History: Coronary Artery Disease (CAD), Hyperlipidemia, Hyper tension, Liver Disease, Rheumatoid Arthritis (RA) Additional Family Medical History / Comment(s): fibromyalgia, snoring, mental illness Father Family Medical History: Cancer, Diabetes Mellitus, GERD/Reflux General Exam Limitations: no limitations General appearance: alert, in no apparent distress Head exam: Present: atraumatic, normocephalic, normal inspection Eye exam: Present: PERRL, EOMI, conjunctival injection (Diffuse conjunctival injection), other (Finney lamp reveals small corneal abrasion at 11 o'clock position on border of iris. Snellen chartleft eye 20/70, right eye 20/30). Absent: scleral icterus, periorbital swelling Pupils: Present: normal accommodation, other (Tonometer:, Left18, right12) ENT exam: Present: normal exam, mucous membranes moist Neck exam: Present: normal inspection. Absent: tenderness, meningismus, lymphadenopathy Respiratory exam: Present: normal lung sounds bilaterally. Absent: respiratory distress, wheezes, rales, rhonchi, stridor Cardiovascular Exam: Present: regular rate, normal rhythm, normal heart sounds. Absent: systolic murmur, diastolic murmur, rubs, gallop, clicks GI/Abdominal exam: Present: soft, normal bowel sounds. Absent: distended, tenderness, guarding, rebound, rigid Extremities exam: Present: normal inspection, full ROM, normal capillary refill. Absent: tenderness, pedal edema, joint swelling, calf tenderness Back exam: Present: normal inspection Neurological exam: Present: alert, oriented X3, CN II-XII intact Psychiatric exam: Present: normal affect, normal mood Skin exam: Present: warm, dry, intact, normal color. Absent: rash Course Vital Signs 08/23/24 22:06 Temperature 97.6 F Pulse Rate 97 Respiratory 18 Rate Blood Pressure 151/92 O2 Sat by Pulse 98 Oximetry Procedures - Forgein Body Removal Eye Site: Left Anesthetic Used: Proparacaine Eye Exam Technique: Finney Lamp, Fluorescein Foreign Body Suspected: Other Forgein Body Removal Technique: Cotton Swab Remaining Debris: No Patient Tolerated: no complications Additional Comments: Removal of thin white layer lining upper eyelid, with patient noting significant relief of foreign body sensation afterwards. Medical Decision Making - Medical Decision Making Was pt. sent in by a medical professional or institution (, PA, HVAC TECHNICIAN, urgent care, hospital, or alf...) When possible be specific @ -[No] Did you speak to anyone other than the patient for history (EMS, parent, family, police, friend...)? What history was obtained from this source @ -[No] Did you review nursing and triage notes (agree or disagree)? Why? @ -[I reviewed and agree with nursing and triage notes] Were old charts reviewed (outside hosp., previous admission, EMS record, old EKG, old radiological studies, urgent care reports/EKG's, alf records)? Report findings @ -[No old charts were reviewed] Differential Diagnosis (chest pain, altered mental status, abdominal pain women, abdominal pain men, vaginal bleeding, weakness, fever, dyspnea, syncope, headac he, dizziness, GI bleed, back pain, seizure, CVA, palpatations, mental health, musculoskeletal)? @ -Eye foreign body, corneal abrasion, conjunctivitis, episcleritis, glaucoma, iritis, this is not an exhaustive list EKG interpreted by me (3pts min.). @ -Not done X-rays interpreted by me (1pt min.). @ -[None done] CT interpreted by me (1pt min.). @ -[None done] U/S interpreted by me (1pt. min.). @ -[None done] What testing was considered but not performed or refused? (CT, X-rays, U/S, labs)? Why? @ -[None] What meds were considered but not given or refused? Why? @ -[None] Did you discuss the management of the patient with other professionals (professionals i.e. , PA, HVAC TECHNICIAN, lab, RT, psych nurse, public health social worker, body component engineer, teacher, chief lending officer, mental health case manager)? Give summary @ -[No] Was smoking cessation discussed for >3mins.? @ -[No] Was critical care preformed (if so, how long)? @ -[No] Were there social determinants of health that impacted care today? How? (Homelessness, low income, unemployed, alcoholism, drug addiction, transportation, low edu. Level, literacy, decrease access to med. care, half-way, rehab)? @ -[No] Was there de-escalation of care discussed even if they declined (Discuss DNR or withdrawal of care, Hospice)? DNR status @ -[No] What co-morbidities impacted this encounter? (DM, HTN, Smoking, COPD, CAD, Cancer, CVA, ARF, Chemo, Hep., AIDS, mental health diagnosis, sleep apnea, morbid obesity)? @ -[None] Was patient admitted / discharged? Hospital course, mention meds given and route, prescriptions, significant lab abnormalities, going to OR and other pertinent info. @ -[hospital course] Undiagnosed new problem with uncertain prognosis? @ -[No] Drug Therapy requiring intensive monitoring for toxicity (Heparin, Nitro, Insulin, Cardizem)? @ -[No] Were any procedures done? @ -L eye foreign body removed, see procedure note Diagnosis/symptom? @ -Foreign body of left eye, corneal abrasion Acute, or Chronic, or Acute on Chronic? @ -Acute Uncomplicated (without systemic symptoms) or Complicated (systemic symptoms)? @ -Uncomplicated Side effects of treatment? @ -[No] Exacerbation, Progression, or Severe Exacerbation? @ -[No] Poses a threat to life or bodily function? How? (Chest pain, [place], [place], pneumonia, PE, COPD, DKA, ARF, appy, cholecystitis, CVA, Diverticulitis, Homicidal, Suicidal, threat to staff... and all critical care pts) @ -[No] Disposition Clinical Impression: Corneal abrasion, Foreign body of left eye Disposition: HOME SELF-CARE Condition: Good Instructions (If sedation given, give patient instructions): Eye Foreign Body (ED), Abrasion (ED) Additional Instructions: Keep eye moisturized with artificial tears as needed. May apply cold compress to affected eye for 10 minutes up to 4 times daily. Alternate Tylenol/Motrin every 4 hours for pain. Follow-up with ophthalmology in the next 24 hours regarding any ongoing eye pain or vision changes. Prescriptions: Polymyxin B-Trimeth Sulf Ophth [Polytrim Opthalmic] 1 drops LEFT EYE Q3H 7 Days #10 ml Is patient prescribed a controlled substance at d/c from ED?: No Referrals: Abena Gonzalez MD [Primary Care Provider] - 1-2 days Rut Steinberg MD [STAFF PHYSICIAN] - 1-2 days Time of Disposition: 22:37
[2024-08-23] MEDS: POLYMYXIN B-TRIMETHOPRIM SULF (10,000-1) OPHTH DROPS 10 ML BTL LEFT EYE STA (23:41)
[2024-08-23 23:47] VITALS: BP 124/84; PULSE 79; RESP 16; TEMP 98.1
== END 2024-08-23 23:43 | disposition home or self-care (01) ==
LOC: EC 22:04
DX: S05.02XA Injury of conjunctiva and corneal abrasion without foreign body, left eye, initial encounter (principal); T15.92XA Foreign body on external eye, part unspecified, left eye, initial encounter; F17.290 Nicotine dependence, other tobacco product, uncomplicated; W44.9XXA Unspecified foreign body entering into or through a natural orifice, initial encounter
CPT/HCPCS: 65222; 99283